=== PATIENT | female | born 1970 | race African-American/Black ===

== ENCOUNTER 2025-04-05 16:39 | Emergency (ER) | payer OTHER ==
[2025-04-05 16:45] VITALS: TEMP 98; BMI 38.9
[2025-04-05] MEDS ORDERED: MAG HYDROX/AL HYDROX/SIMETH 30 ML UNIT-DOSE CUP ONE (18:10)
[2025-04-05] MEDS ORDERED: FAMOTIDINE 20 MG/50 ML IVPB 20 MG/50 ML MG IVPB ONE (18:10)
[2025-04-05] MEDS ORDERED: LIDOCAINE 4% PATCH TP ONE (18:10)
[2025-04-05] MEDS: LIDOCAINE 4% PATCH TP ONE (18:18)
[2025-04-05] MEDS: MAG HYDROX/AL HYDROX/SIMETH 30 ML UNIT-DOSE CUP PO ONE (18:18)
[2025-04-05] MEDS: ACETAMINOPHEN 1000 MG/100 ML BAG IVPB ONE (18:18)
[2025-04-05 18:33] LABS: MCHC 32.7 g/dl (32.2-35.5); MEAN CELL VOLUME 71.4 fl (79.4-94.8); MEAN PLT VOLUME 9.6 fl (9.4-12.3); RDW 17.0 % (12.3-16.6)
[2025-04-05 18:43] LABS: EPI CELLS 16 /uL (0-25.1); HYALINE CASTS 0 /uL (0-3.1); URINE APPEARANCE CLEAR; URINE BACTERIA 109 /uL (0-1359); URINE BILIRUBIN NEGATIVE (NEGATIVE); URINE COLOR YELLOW; URINE GLUCOSE (UA) NEGATIVE (NEGATIVE); URINE KETONE NEGATIVE (NEGATIVE); URINE LEUK ESTERASE TRACE (NEGATIVE); URINE NITRITE NEGATIVE (NEGATIVE); URINE PROTEIN NEGATIVE (NEGATIVE); URINE RBC 5 /uL (0-23.9); URINE UROBILINOGEN 0.2 mg/dL (0.2-1.0); URINE WBC 14 /uL (0-25.8)
[2025-04-05 18:45] LABS: INR 1.23 (0.83-1.09); PROTHROMBIN TIME (PATIENT) 13.4 SEC (9.7-13.0)
[2025-04-05] MEDS: FAMOTIDINE 20 MG/50 ML IVPB 20 MG/50 ML MG IVPB ONE (18:45)
[2025-04-05 18:48] LABS: ACTIVATED PTT 42.3 SECONDS (25.2-36.5); GLUCOSE,RANDOM 78.0 mg/dL (74-106); TOT PROT 7.1 g/dl (6.4-8.2)
[2025-04-05 18:49] LABS: CO2 23.0 mmol/L (21-32)
[2025-04-05 18:50] LABS: ALK PHOS 98.0 U/L (40-150)
[2025-04-05 18:53] LABS: SGOT/AST 31.0 U/L (5-34); SGPT/ALT 24.0 U/L (0-55)
[2025-04-05 18:54] LABS: CREATININE 0.75 mg/dL (0.55-1.3)
[2025-04-05 20:54] VITALS: BP 132/76; PULSE 59; RESP 16
[2025-04-05] MEDS ORDERED: LIDOCAINE PATCH REMOVAL MC SCH (22:00)
== END 2025-04-05 20:54 | disposition home or self-care (01) ==
LOC: JER 16:39
PROC: 3E033GC Introduction of Other Therapeutic Substance into Peripheral Vein, Percutaneous Approach (ICD-10-PCS; principal; 2025-04-05)
PROC: 3E033NZ Introduction of Analgesics, Hypnotics, Sedatives into Peripheral Vein, Percutaneous Approach (ICD-10-PCS; 2025-04-05)
DX: R07.81 Pleurodynia (principal); R20.0 Anesthesia of skin; R20.2 Paresthesia of skin
CPT/HCPCS: 36415; 71250-TC; 80053; 81003; 83690; 83735; 84484; 85027; 85610; 85730; 87086; 93005; 93010; 99285-25